=== PATIENT | female | born 1995 | race Caucasian/White ===

== ENCOUNTER 2017-02-11 00:10 | Observation (INO) | payer BC, MEDICAID ==
[2017-02-11 00:26] LABS: Bilirubin NEGATIVE (NEGATIVE); Blood NEGATIVE Ery/ul (0-5); COMPLETE URINE MICROSCOPIC? NO; Collection Type CLEAN CATCH; Glucose NEGATIVE (NEGATIVE); Leukocyte Esterase NEGATIVE (NEGATIVE)
[2017-02-11] MEDS ORDERED: Sodium Chloride 0.9% 1000 ML 1,000 ML ONE (00:50)
[2017-02-11] MEDS ORDERED: Sodium Chloride 0.9% 1000 ML 1,000 ML IV STA (00:53)
[2017-02-11] MEDS ORDERED: Norco 10/325 MG Tablet PO PRN (00:54)
[2017-02-11] MEDS ORDERED: MORPHINE SULFATE 10 MG/ML IV PRN (00:55)
[2017-02-11] MEDS ORDERED: Phenergan 25 MG INJ IV PRN (00:56)
[2017-02-11 01:57] LABS: BASOPHIL % 0.1 % (0.0-0.4); Eosinophil % 0.3 % (0.00-5.0); Granulocytes % 80.5 % (36.0-66.0); Lymphocytes % 13.7 % (24.0-44.0); Mean Cell Volume 92.9 fl (78-100); Mean Corpuscular Hemoglobin 31.3 pg (26-32); Mean Platelet Volume 10.2 fl (6-9.5); Monocytes % 5.4 % (0.0-12.0); Platelet Count 252 K/mm3 (150-450); Red Blood Count 3.51 M/mm3 (4.1-5.4); Red Cell Distribution Width 13.2 % (11.5-14.0); White Blood Count 12.3 K/mm3 (4.0-10.5)
[2017-02-11 02:14] LABS: ALBUMIN 3.2 g/dL (3.4-5.0); ALKALINE PHOSPHATASE 73 U/L (46-116); ANION GAP 13.6 MEQ/L (5-15); BLOOD UREA NITROGEN 9 mg/dL (9-20); CHLORIDE 106 mEq/L (98-107); Carbon Dioxide 24.1 mEq/L (21-32); Glucose 86 MG/DL (70-110); Potassium 3.5 mEq/L (3.5-5.1); SGOT/AST 23 U/L (15-37); SGPT/ALT 14 U/L (12-78); SODIUM 140 mEq/L (136-145); Total Protein 6.7 gm/dL (6.4-8.2)
[2017-02-11] MEDS: Lactated Ringers 1,000 ML IV SCH ×2 (02:17→09:57)
--- NOTE | 2017-02-11 09:50 | XRAY ---
Indication: Right-sided pain. Two-dimensional renal ultrasound performed. Comparison: None Both kidneys normal in reniform shape with normal color perfusion. Right kidney measures 11.0 x 4.6 x 4.9 cm and the left measures 11.6 x 5.2 x 4.6 cm. No renal mass, hydronephrosis, or perinephric fluid. Cortical medullary differentiation maintained without cortical thinning. Images of the urinary bladder unremarkable. Bilateral ureteral jets documented. Incidental 7 mm gallstone without gallbladder wall thickening or pericholecystic fluid. Impression: Negative renal sonogram. Incidental tiny gallstone.
--- NOTE | 2017-02-11 09:53 | XRAY ---
Indication: Pain. Two-dimensional OB ultrasound performed. Comparison: January 17, 2017. There is again a single viable intrauterine in cephalic presentation. Normal four-chamber heart with heart rate 147 bpm. Normal three-vessel cord and cord insertion. Visualized head, spine, stomach, kidneys, and bladder are again unremarkable. Placenta is again posterior without abruption/previa. BPD measures 5.22 cm corresponding to 21 weeks 6 days. HC measures 18.40 cm corresponding to 20 weeks 5 day. AC measures 15.79 cm corresponding to 20 weeks 6 days. FL measures 3.72 cm corresponding to 21 weeks 6 days. SANTOS is 12.5 cm. Impression: Again single viable intrauterine measuring 21 weeks 2 days. Normal progression of . No new/acute findings.
[2017-02-11 12:40] VITALS: BP 119/63; PULSE 100
== END 2017-02-11 12:40 | disposition home or self-care (01) ==
LOC: OB 00:10
PROVIDERS: ADMIT Family Medicine; ATTEND Family Medicine
DX: Z34.02 Encounter for supervision of normal first pregnancy, second trimester (principal)
CPT/HCPCS: 36415; 76770; 76805; 80053; 80307; 81002; 85025; G0378; A9270-GY

== ENCOUNTER 2017-03-20 12:45 | Observation (INO) | payer BC, MEDICAID ==
[2017-03-20 13:29] VITALS: O2SAT 98
[2017-03-20 13:51] LABS: Collection Type CCMS
[2017-03-20 13:52] LABS: Bilirubin NEGATIVE (NEGATIVE); Blood NEGATIVE Ery/ul (0-5); COMPLETE URINE MICROSCOPIC? YES; Glucose NEGATIVE (NEGATIVE); Leukocyte Esterase TRACE (NEGATIVE)
[2017-03-20 15:03] LABS: Bacteria FEW /HPF (NEGATIVE); Epithelial Cells RARE /HPF (FEW); WBC 0-2 /HPF (0-5)
[2017-03-20] MEDS ORDERED: TYLENOL 325 MG PO STA (15:17)
[2017-03-20] MEDS ORDERED: Lactated Ringers 1,000 ML IV SCH (15:30)
[2017-03-20 16:11] LABS: Mean Cell Volume 91.8 fl (78-100); Mean Corpuscular Hemoglobin 30.8 pg (26-32); Mean Platelet Volume 10.2 fl (6-9.5); Platelet Count 251 K/mm3 (150-450); Red Blood Count 3.89 M/mm3 (4.1-5.4); Red Cell Distribution Width 12.5 % (11.5-14.0)
[2017-03-20 16:24] LABS: ALKALINE PHOSPHATASE 95 U/L (46-116); ANION GAP 13.1 MEQ/L (5-15); BLOOD UREA NITROGEN 5 mg/dL (9-20); CHLORIDE 104 mEq/L (98-107); Carbon Dioxide 24.8 mEq/L (21-32); Glucose 82 MG/DL (70-110); Potassium 3.5 mEq/L (3.5-5.1); SGOT/AST 12 U/L (15-37); SGPT/ALT 11 U/L (12-78); SODIUM 138 mEq/L (136-145); Total Protein 6.8 gm/dL (6.4-8.2)
[2017-03-20 16:35] VITALS: BP 102/51; PULSE 63
== END 2017-03-20 17:40 | disposition home or self-care (01) ==
LOC: OB 12:45
PROVIDERS: ADMIT Family Medicine; ATTEND Family Medicine
DX: Z34.82 Encounter for supervision of other normal pregnancy, second trimester (principal)
CPT/HCPCS: 36415; 80053; 81000; 85027; G0378; A9270-GY

== ENCOUNTER 2017-05-30 09:36 | Observation (INO) | payer BC, MEDICAID ==
[2017-05-30 10:42] VITALS: BP 122/67; PULSE 90
--- NOTE | 2017-05-30 12:34 | XRAY ---
Indication: Increased heart rate. Ultrasound biophysical profile study was performed. Comparison: None There is a single viable intrauterine with heart rate 150 BPM. Four-quadrant SANTOS is 13.8 cm. Largest amniotic pocket 5.4 cm. 2 points given for breathing, movements, tone, and qualitative amniotic fluid volume. Impression: Total biophysical profile score is 8 out of 8.
== END 2017-05-30 12:23 | disposition home or self-care (01) ==
LOC: OB 09:36
PROVIDERS: ADMIT Family Medicine; ATTEND Family Medicine
DX: Z34.83 Encounter for supervision of other normal pregnancy, third trimester (principal)
CPT/HCPCS: 59025; 76819; G0378

== ENCOUNTER 2017-06-26 09:15 | Inpatient (IN) | payer BC, MEDICAID ==
[2017-06-26] MEDS ORDERED: Cervidil 10 MG VAG SCH (18:00)
[2017-06-26] MEDS ORDERED: XYLOCAINE 1% HCL 20 ML MDV IJ PRN (18:35)
[2017-06-26] MEDS ORDERED: BRETHINE 1 MG/ML SQ PRN (18:35)
[2017-06-26 19:30] LABS: BASOPHIL % 0.1 % (0.0-0.4); Basophil (Absolute #) 0.01 (0-0.4); Eosinophil % 0.6 % (0.00-5.0); Eosinophil (Absolute #) 0.05 (0-0.5); Granulocyte Absolute (ANC) 7.15 (1.4-6.9); Granulocytes % 81.8 % (36.0-66.0); Hematocrit 33.6 % (35-47); Hemoglobin 10.7 gm/dl (12.0-16.0); Lymphocyte (Absolute #) 1.07 (1.0-4.6); Lymphocytes % 12.2 % (24.0-44.0); Mean Cell Volume 87.3 fl (78-100); Mean Corpuscular Hgb Concent. 31.8 g/dl (32-36); Mean Platelet Volume 10.6 fl (6-9.5); Monocyte (Absolute #) 0.46 (0.0-1.3); Monocytes % 5.3 % (0.0-12.0); Platelet Count 192 K/mm3 (150-450); Red Blood Count 3.85 M/mm3 (4.1-5.4); Red Cell Distribution Width 14.9 % (11.5-14.0); White Blood Count 8.7 K/mm3 (4.0-10.5)
[2017-06-26] MEDS ORDERED: Lactated Ringers 1,000 ML IV ONE (20:16)
[2017-06-26 20:24] LABS: Mean Corpuscular Hemoglobin 27.7 pg (26-32)
[2017-06-26 21:17] LABS: Appearance CLOUDY (CLEAR)
[2017-06-26 21:18] LABS: Bilirubin NEGATIVE (NEGATIVE); Blood NEGATIVE Ery/ul (0-5); Glucose NEGATIVE (NEGATIVE); Ketones NEGATIVE (NEGATIVE); Leukocyte Esterase NEGATIVE (NEGATIVE); Nitrite NEGATIVE (NEGATIVE); Protein,Urine Dip NEGATIVE (Negative); Urobilinogen NORMAL mg/dL (0-1)
[2017-06-26 21:29] LABS: Amphetamine,Urine NEG. (NEGATIVE); Barbiturate,Urine NEG. (NEGATIVE); Benzodiazepine,Urine NEG. (NEGATIVE); Cocaine,Urine NEG. (NEGATIVE); Methadone,Urine NEG. (NEGATIVE); Opiate,Urine NEG. (NEGATIVE); PCP,Urine NEG. (NEGATIVE); THC,Urine NEG. (NEGATIVE)
[2017-06-27] MEDS: TYLENOL EXTRA STRENGTH 500 MG PO PRN ×3 (00:36→08:55)
[2017-06-27] MEDS: Lactated Ringers 1,000 ML IV SCH ×4 (09:28→13:18)
[2017-06-27] MEDS ORDERED: Ventolin Hfa MDI IH PRN (09:45)
[2017-06-27] MEDS ORDERED: ATARAX 25 MG PO PRN (09:45)
[2017-06-27] MEDS ORDERED: PROVENTIL COMMON CANISTER IH PRN (09:49)
[2017-06-27] MEDS ORDERED: Zithromax 250 MG TABLET PO SCH (10:00)
[2017-06-27] MEDS ORDERED: Ephedrine Sulfate 50 MG/ML IV PRN (10:21)
[2017-06-27] MEDS ORDERED: OB EPIDURAL NAROPIN/SUFENTANIL IN NACL EPIDURAL PRN (10:21)
[2017-06-27] MEDS: FEOSOL 325 MG PO SCH (11:04)
[2017-06-27] MEDS: PATIENT OWN MEDICATION PO SCH ×2 (11:04→11:33)
[2017-06-27] MEDS: Zofran 4 MG/2 ML VIAL IV PRN ×2 (11:11→15:26)
[2017-06-27] MEDS ORDERED: Lactated Ringers 1,000 ML IV ONE (11:58)
[2017-06-27] MEDS ORDERED: KEFZOL 1 GM ONE (11:58)
[2017-06-27 12:21] LABS: Hematocrit 32.4 % (35-47); Hemoglobin 10.2 gm/dl (12.0-16.0); Mean Cell Volume 88.5 fl (78-100); Mean Corpuscular Hgb Concent. 31.5 g/dl (32-36); Mean Platelet Volume 10.5 fl (6-9.5); Platelet Count 195 K/mm3 (150-450); Red Blood Count 3.66 M/mm3 (4.1-5.4); Red Cell Distribution Width 15.3 % (11.5-14.0); White Blood Count 9.6 K/mm3 (4.0-10.5)
[2017-06-27 12:26] LABS: Mean Corpuscular Hemoglobin 27.8 pg (26-32)
[2017-06-27 12:28] LABS: INR 0.94 (0.8-3.0)
[2017-06-27] MEDS: PITOCIN 30 UNITS/ LR 500 ML 30 UNITS/500 ML IV.SOLN. IV SCH (15:43)
[2017-06-27 16:14] LABS: Bacteria RARE /HPF (NEGATIVE); Epithelial Cells FEW /HPF (FEW); WBC 0-2 /HPF (0-5)
[2017-06-27] MEDS ORDERED: Dulcolax 10 MG SUPP PR PRN (21:57)
[2017-06-27] MEDS ORDERED: Ambien 10 MG PO PRN (21:57)
[2017-06-27] MEDS ORDERED: Mylicon 80MG PO PRN (21:57)
[2017-06-27] MEDS ORDERED: NORCO 5/325 MG PO PRN (21:57)
[2017-06-27] MEDS ORDERED: LANSINOH 40 GM TOP PRN (21:57)
[2017-06-27] MEDS ORDERED: Anucort-HC SUPPOSITORY PR PRN (21:57)
[2017-06-27] MEDS ORDERED: CORTISONE 1% CREAM TP PRN (21:57)
[2017-06-27] MEDS ORDERED: Dermoplast Spray TP PRN (21:57)
[2017-06-27] MEDS ORDERED: TUCKS TP PRN (21:57)
[2017-06-28] MEDS: Colace 100 MG PO SCH ×3 (00:36→19:48)
[2017-06-28] MEDS: MOTRIN 400 MG PO PRN ×2 (04:54→14:48)
[2017-06-28 06:29] LABS: BASOPHIL % 0.1 % (0.0-0.4); Basophil (Absolute #) 0.01 (0-0.4); Eosinophil % 0.2 % (0.00-5.0); Eosinophil (Absolute #) 0.02 (0-0.5); Granulocyte Absolute (ANC) 7.93 (1.4-6.9); Granulocytes % 81.4 % (36.0-66.0); Hematocrit 30.2 % (35-47); Hemoglobin 9.6 gm/dl (12.0-16.0); Lymphocyte (Absolute #) 1.36 (1.0-4.6); Lymphocytes % 13.9 % (24.0-44.0); Mean Cell Volume 88.3 fl (78-100); Mean Corpuscular Hgb Concent. 31.8 g/dl (32-36); Mean Platelet Volume 10.8 fl (6-9.5); Monocyte (Absolute #) 0.43 (0.0-1.3); Monocytes % 4.4 % (0.0-12.0); Platelet Count 167 K/mm3 (150-450); Red Blood Count 3.42 M/mm3 (4.1-5.4); Red Cell Distribution Width 15.2 % (11.5-14.0); White Blood Count 9.8 K/mm3 (4.0-10.5)
[2017-06-28] MEDS: Lactated Ringers 1,000 ML IV SCH ×2 (08:59→09:00)
[2017-06-28] MEDS: PITOCIN 30 UNITS/ LR 500 ML 30 UNITS/500 ML IV.SOLN. IV SCH (09:01)
[2017-06-28] MEDS ORDERED: FERREX 150 PO SCH (10:00)
[2017-06-28] MEDS: PATIENT OWN MEDICATION PO SCH (10:42)
[2017-06-28] MEDS: FEOSOL 325 MG PO SCH (10:42)
[2017-06-28] MEDS: TYLENOL EXTRA STRENGTH 500 MG PO PRN (19:49)
[2017-06-28 22:15] VITALS: O2SAT 98
[2017-06-29] MEDS: TYLENOL EXTRA STRENGTH 500 MG PO PRN (03:09)
[2017-06-29] MEDS: Colace 100 MG PO SCH ×2 (09:07→19:44)
[2017-06-29] MEDS: FEOSOL 325 MG PO SCH (09:07)
[2017-06-29] MEDS: PATIENT OWN MEDICATION PO SCH (09:12)
[2017-06-29] MEDS ORDERED: Adacel Vial IM ONE (10:00)
--- NOTE | 2017-06-29 12:52 | PCM.DS ---
Discharge Summary Date of Admission: 06/27/17 09:15 Admitting Physician: GWYN MG Consults: Consults on Case 06/27/17 10:22 Notify Anesthesia Provider PRN Primary Care Provider: GWYN MG Allergies Allergies No Known Drug Allergies Allergy (Verified 03/20/17 13:09) Hospital Summary - Hospital Course Hospital Course: 21yo delivered by with Dr Mg on 06/27/16 with no complications. mild lochia, pain controlled. breast feeding and well bonded with baby girl - Vitals & Intake/Output Vital Signs: Vital Signs Temperature 98.8 F 06/29/17 08:00 Pulse Rate 79 06/29/17 08:00 Respiratory Rate 18 06/29/17 08:00 Blood Pressure 123/63 06/29/17 08:00 O2 Sat by Pulse Oximetry 98 06/28/17 22:11 Oxygen-Last Documented O2 Percentage 100% Intake & Output: Intake & Output 06/27/17 06/28/17 06/29/17 06/30/17 11:59 11:59 11:59 11:59 Intake Total 1650 6285 2075 Output Total 500 Balance 1650 5785 2075 Weight 85.729 kg - Lab Result Diagrams: 06/28/17 05:15 Micro Results-Entire Visit: Microbiology 06/27/17 12:27 Urine Culture - Final Catherized NO GROWTH - Procedures and Test Procedures and Tests throughout Hospitalization: Therapy Orders & Screens 06/28/17 22:11 Respiratory MDI UD Comment: alb mdi Diagnosis: induction of labor Discharge Exam General Appearance: no apparent distress, alert Skin Exam: normal color, warm, dry Respiratory Exam: normal breath sounds, lungs clear, No respiratory distress Cardiovascular Exam: regular rate/rhythm, normal heart sounds Gastrointestinal/Abdomen Exam: soft, No tenderness, No mass Extremity Exam: normal inspection, normal range of motion Final Diagnosis/Problem List - Final Discharge Diagnosis/Problem (1) Vaginal delivery Current Visit: Yes Status: Acute (2) () Current Visit: Yes Status: Acute - Discharge Disposition: Home, Self-Care Condition: Stable Prescriptions: New Breast Pump 1 each UD #1 each Continue Hydroxyzine HCl 25 mg [Atarax 25 mg] 25 mg PO TID PRN PRN Reason: Anxiety Azithromycin 250 mg PO DAILY Albuterol Sulfate [Ventolin Hfa] 2 puff PO Q6H PRN PRN Reason: SHORTNESS OF BREATH Ferrous Sulfate [Iron] 325 mg PO DAILY Follow up with: GWYN MG [Primary Care Provider] - 1 Week
[2017-06-29] MEDS: MOTRIN 400 MG PO PRN ×2 (13:01→19:44)
[2017-06-29 21:31] VITALS: BP 133/87; PULSE 52
== END 2017-06-29 20:45 | disposition home or self-care (01) | DRG 775 ==
LOC: OB 09:15 → OBSVTOIN 06-27 09:15
PROVIDERS: ADMIT Family Medicine; ATTEND Family Medicine
PROC: 10E0XZZ Delivery of Products of Conception, External Approach (ICD-10-PCS; principal; 2017-06-27)
DX: O80 Encounter for full-term uncomplicated delivery (principal); Z3A.40 40 weeks gestation of pregnancy; Z37.0 Single live birth
CPT/HCPCS: 01967; 36415; 80307; 81000; 81002; 85025; 85027; 85610; 85730; 86592; 87086; 90715; 94760; 94799; 96372; G0378; J0690; J2405; J2590; J2795; A9270-GY

== ENCOUNTER 2019-03-16 14:05 | Observation (INO) | payer BC, OTHER ==
[2019-03-16 14:34] VITALS: BP 120/78; PULSE 106
[2019-03-16 14:48] VITALS: O2SAT 97
[2019-03-16 15:15] LABS: Amphetamine,Urine NEGATIVE (NEGATIVE); Barbiturate,Urine NEGATIVE (NEGATIVE); Benzodiazepine,Urine NEGATIVE (NEGATIVE); Cocaine,Urine NEGATIVE (NEGATIVE); Methadone,Urine NEGATIVE (NEGATIVE); Opiate,Urine NEGATIVE (NEGATIVE); PCP,Urine NEGATIVE (NEGATIVE); THC,Urine NEGATIVE (NEGATIVE)
== END 2019-03-16 15:55 | disposition home or self-care (01) ==
LOC: UNDOADMOB 14:05 → OB 14:05 → UNDODISOB 15:55
PROVIDERS: ADMIT Family Medicine; ATTEND Family Medicine
DX: Z34.83 Encounter for supervision of other normal pregnancy, third trimester (principal)
CPT/HCPCS: 80307; G0378

== ENCOUNTER 2019-03-26 13:14 | Inpatient (IN) | payer BC, OTHER ==
[2019-03-26] MEDS ORDERED: OMNIPEN 2 GM / NACL 100ML 100 ML IV ONE (16:25)
[2019-03-26] MEDS ORDERED: XYLOCAINE 1% HCL 20 ML MDV IJ PRN (16:25)
[2019-03-26] MEDS ORDERED: Ephedrine Sulfate 50 MG/ML IV PRN (16:25)
[2019-03-26] MEDS ORDERED: OB EPIDURAL NAROPIN/SUFENTANIL IN NACL EPIDURAL PRN (16:25)
[2019-03-26] MEDS ORDERED: Lactated Ringers 1,000 ML IV ONE (16:25)
[2019-03-26] MEDS ORDERED: Lactated Ringers 1,000 ML IV SCH (16:30)
[2019-03-26] MEDS ORDERED: PITOCIN 30 UNITS/ LR 500 ML 500 ML IV SCH (16:30)
[2019-03-26 17:03] LABS: Absolute Neutrophil Ct (ANC) 12.43 (1.4-6.9); BASOPHIL % 0.1 % (0.0-0.4); Basophil (Absolute #) 0.01 (0-0.4); Eosinophil % 0.3 % (0.00-5.0); Eosinophil (Absolute #) 0.05 (0-0.5); Hematocrit 32.1 % (35-47); Hemoglobin 10.2 gm/dl (12.0-16.0); Lymphocyte (Absolute #) 1.75 (1.0-4.6); Lymphocytes % 11.7 % (24.0-44.0); Mean Cell Volume 81.5 fl (78-100); Mean Corpuscular Hgb Concent. 31.8 g/dl (32-36); Mean Platelet Volume 10.5 fl (6-9.5); Monocyte (Absolute #) 0.71 (0.0-1.3); Monocytes % 4.7 % (0.0-12.0); Neutrophil % 83.2 % (36.0-66.0); Platelet Count 208 K/mm3 (150-450); Red Blood Count 3.94 M/mm3 (4.1-5.4); Red Cell Distribution Width 14.6 % (11.5-14.0)
[2019-03-26 17:07] LABS: Mean Corpuscular Hemoglobin 25.8 pg (26-32)
[2019-03-26] MEDS ORDERED: XYLOCAINE 2%/Epi 1:200000 20ML VIAL MPF IJ ONE (17:20)
[2019-03-26 17:21] LABS: Amphetamine,Urine NEGATIVE (NEGATIVE); Barbiturate,Urine NEGATIVE (NEGATIVE); Benzodiazepine,Urine NEGATIVE (NEGATIVE); Cocaine,Urine NEGATIVE (NEGATIVE); Methadone,Urine NEGATIVE (NEGATIVE); Opiate,Urine NEGATIVE (NEGATIVE); PCP,Urine NEGATIVE (NEGATIVE); THC,Urine NEGATIVE (NEGATIVE)
[2019-03-26 19:05] VITALS: O2SAT 100
[2019-03-26] MEDS ORDERED: Mylicon 80MG PO PRN (20:58)
[2019-03-26] MEDS ORDERED: NORCO 5/325 MG PO PRN (20:58)
[2019-03-26] MEDS ORDERED: Adacel Vial IM ONE (20:58)
[2019-03-26] MEDS ORDERED: Ambien 10 MG PO PRN (20:58)
[2019-03-26] MEDS ORDERED: Anucort-HC SUPPOSITORY PR PRN (20:58)
[2019-03-26] MEDS ORDERED: Dermoplast Spray TP PRN (20:58)
[2019-03-26] MEDS ORDERED: LANSINOH 40 GM TOP PRN (20:58)
[2019-03-26] MEDS ORDERED: Dulcolax 10 MG SUPP PR PRN (20:58)
[2019-03-26] MEDS ORDERED: TUCKS TP PRN (20:58)
[2019-03-26] MEDS ORDERED: CORTISONE 1% CREAM TP PRN (20:58)
[2019-03-26] MEDS: TYLENOL EXTRA STRENGTH 500 MG PO PRN (21:06)
[2019-03-26] MEDS: Colace 100 MG PO SCH (21:06)
[2019-03-27] MEDS: MOTRIN 400 MG PO PRN ×3 (00:47→21:45)
[2019-03-27] MEDS: TYLENOL EXTRA STRENGTH 500 MG PO PRN ×3 (05:11→19:46)
[2019-03-27 05:48] LABS: Absolute Neutrophil Ct (ANC) 10.36 (1.4-6.9); BASOPHIL % 0.1 % (0.0-0.4); Basophil (Absolute #) 0.01 (0-0.4); Eosinophil % 0.5 % (0.00-5.0); Eosinophil (Absolute #) 0.06 (0-0.5); Hematocrit 28.5 % (35-47); Lymphocyte (Absolute #) 1.79 (1.0-4.6); Lymphocytes % 13.7 % (24.0-44.0); Mean Cell Volume 81.7 fl (78-100); Mean Corpuscular Hemoglobin 25.7 pg (26-32); Mean Corpuscular Hgb Concent. 31.6 g/dl (32-36); Mean Platelet Volume 10.3 fl (6-9.5); Monocyte (Absolute #) 0.83 (0.0-1.3); Monocytes % 6.4 % (0.0-12.0); Neutrophil % 79.3 % (36.0-66.0); Platelet Count 174 K/mm3 (150-450); Red Blood Count 3.49 M/mm3 (4.1-5.4); Red Cell Distribution Width 14.8 % (11.5-14.0); White Blood Count 13.1 K/mm3 (4.0-10.5)
[2019-03-27] MEDS: Colace 100 MG PO SCH ×2 (08:39→19:46)
[2019-03-27] MEDS: FERREX 150 PO SCH (08:39)
--- NOTE | 2019-03-28 10:59 | PCM.DS ---
Discharge Summary Date of Admission: 03/26/19 16:16 Admitting Physician: GWYN MARTINEZ Consults: Consults on Case 03/26/19 20:58 Notify Physician Primary Care Provider: GWYN MARTINEZ Allergies Allergies No Known Drug Allergies Allergy (Verified 03/16/19 14:21) Hospital Summary - Hospital Course Hospital Course: Pt came in as 23 yo at 38w 6d in active labor, yudi, at 4 cm. She did receive an epidural. Had SROM with clear fluid. Delivered 8lb 10 oz male, apgars 9 at 1 min and 9 at 5 min, LOP, over small first degree tear of R labia majora (did not require sutures). Placenta delivered spontaneously and intact. She had some brisk bleeding initially, but resolved without any medications. Noteably, pt had a hx of reactions in the family to pitocin and was refusing to have any pitocin throughout labor or after. Her Hgb only fell from 10.2 at admission to 9.0 the morning after delivery. Her bleeding is much general claims agent now. Pain is controlled with alternating tylenol and ibuprofen. She is . Home with baby at 48 h today. - Vitals & Intake/Output Vital Signs: Vital Signs Temperature 98.3 F 03/28/19 03:59 Pulse Rate 85 03/28/19 03:59 Respiratory Rate 18 03/28/19 03:59 Blood Pressure 136/72 03/28/19 03:59 O2 Sat by Pulse Oximetry 100 03/26/19 20:30 Intake & Output: Intake & Output 03/25/19 03/26/19 03/27/19 03/28/19 11:59 11:59 11:59 11:59 Intake Total 1400 2100 Balance 1400 2100 Weight 94.801 kg - Lab Result Diagrams: 03/27/19 05:10 Discharge Exam General Appearance: no apparent distress, alert Neurologic Exam: oriented x 3, cooperative Eye Exam: eyes nml inspection Ears, Nose, Throat Exam: moist mucous membranes Respiratory Exam: normal breath sounds, lungs clear, No crackles/rales, No rhonchi, No wheezing Cardiovascular Exam: regular rate/rhythm, normal heart sounds, No murmur Gastrointestinal/Abdomen Exam: soft, normal bowel sounds, other (fundus firm at umbilicus), No tenderness Back Exam: normal inspection, No rash Extremity Exam: normal inspection, pedal edema (trace LE edema bilat) Skin Exam: normal color, warm, dry, No rash Final Diagnosis/Problem List - Final Discharge Diagnosis/Problem (1) Vaginal delivery Current Visit: No Status: Acute Assessment & Plan: Doing well, home today. F/u with me in 4-6 wks. Code(s): O80 - ENCOUNTER FOR FULL-TERM UNCOMPLICATED DELIVERY - Discharge Disposition: Home, Self-Care Condition: Good Prescriptions: New Docusate Sodium 100 mg [Colace 100 MG] 100 mg PO BID capsule Benzocaine/Lanolin/Aloe Vera [Dermoplast [place]] 1 gm TP UD PRN can PRN Reason: lina pain Ferrous Sulfate 325 mg [Feosol 325 mg] 325 mg PO DAILY #30 tablet Ibuprofen 800 mg PO TID PRN #35 tablet PRN Reason: Pain Witch Lizzeth [Tucks] 1 each TP PRN PRN med..pad PRN Reason: Itching Continue Vits W-Ca,Fe,FA(<1Mg) [] 1 each PO DAILY Additional Instructions: Come to LR or office tom for any of the following: severe headache, visual changes, sudden increase in swelling, pain in R upper abdomen that will not go away, fever, vomiting, foul smelling discharge, or any other worrisome signs. Follow up with: GWYN MARTINEZ [Primary Care Provider] - 1 Week
[2019-03-28] MEDS: MOTRIN 400 MG PO PRN (12:53)
[2019-03-28] MEDS: FERREX 150 PO SCH (12:54)
[2019-03-28] MEDS: Colace 100 MG PO SCH (12:54)
[2019-03-28 15:29] VITALS: BP 118/67; PULSE 91
== END 2019-03-28 18:35 | disposition home or self-care (01) | DRG 807 ==
LOC: OB 13:14 → OBSVTOIN 16:16
PROVIDERS: ADMIT Family Medicine; ATTEND Family Medicine
PROC: 10E0XZZ Delivery of Products of Conception, External Approach (ICD-10-PCS; principal; 2019-03-26)
DX: O70.0 First degree perineal laceration during delivery (principal); Z37.0 Single live birth; Z3A.38 38 weeks gestation of pregnancy; D64.9 Anemia, unspecified
CPT/HCPCS: 36415; 80307; 83986; 85025; 87340; G0378; J0290; J2795; A9270-GY